=== PATIENT | female | born 1995 | race Caucasian/White ===

== ENCOUNTER 2016-04-18 20:14 | Emergency (ER) | payer SELFPAY ==
[~2016-04-18] VITALS: Ht 160 cm; Wt 118.2 kg
[2016-04-18 20:21] VITALS: TEMP 99.2
[2016-04-18 21:50] VITALS: BP 121/79; PULSE 97
== END 2016-04-18 21:50 | disposition home or self-care (01) ==
LOC: COL.ER 20:14
DX: J06.9 Acute upper respiratory infection, unspecified (principal)

== ENCOUNTER 2017-01-31 18:52 | Emergency (ER) | payer SELFPAY ==
[~2017-01-31] VITALS: Ht 160 cm; Wt 119.1 kg
[2017-01-31 18:54] VITALS: BP 136/68; TEMP 98.7
[2017-01-31] MEDS ORDERED: ULTRAM 50MG TAB50 MG PO (18:58)
[2017-01-31] MEDS ORDERED: FLEXERIL 1010 MG/TAB PO (20:37)
[2017-01-31] MEDS ORDERED: NAPROSYN 2250 MG/TAB PO (20:37)
[2017-01-31 20:53] VITALS: PULSE 79
== END 2017-01-31 20:53 | disposition home or self-care (01) ==
LOC: COL.ER 18:52
DX: S46.011A Strain of muscle(s) and tendon(s) of the rotator cuff of right shoulder, initial encounter (principal); X50.3XXA Overexertion from repetitive movements, initial encounter

== ENCOUNTER 2017-06-19 12:57 | Emergency (ER) | payer SELFPAY ==
[~2017-06-19] VITALS: Ht 160 cm; Wt 118.2 kg
[~2017-06-19 12:57] MED LIST: FLEXERIL 1010 MG/TAB PO; NAPROSYN 2250 MG/TAB PO; ULTRAM 50MG TAB50 MG PO
[2017-06-19 12:59] VITALS: BP 123/82; TEMP 97.3
[2017-06-19] MEDS ORDERED: PREDNISONE20 MG PO (14:00)
[2017-06-19 14:04] VITALS: PULSE 76
== END 2017-06-19 14:05 | disposition home or self-care (01) ==
LOC: COL.ER 12:57
DX: J04.0 Acute laryngitis (principal); J02.9 Acute pharyngitis, unspecified

== ENCOUNTER 2018-03-21 16:54 | Emergency (ER) | payer SELFPAY ==
[~2018-03-21] VITALS: Ht 160 cm; Wt 115.5 kg
[~2018-03-21 16:54] MED LIST changes: +PREDNISONE20 MG PO
[2018-03-21 16:57] VITALS: TEMP 98.6
[2018-03-21] MEDS ORDERED: NAPROSYN500 MG PO (17:36)
[2018-03-21 17:47] LABS: COLLECTION METHOD CLEAN CATCH
[2018-03-21 17:59] LABS: MUCOUS Present /lpf; PH 7 (5-8); URINE APPEARANCE Cloudy; URINE BACTERIA None Seen /hpf; URINE BILIRUBIN Negative (NEGATIVE); URINE BLOOD 1+ (NEGATIVE); URINE COLOR Yellow; URINE GLUCOSE Negative (NEGATIVE); URINE KETONE Negative (NEGATIVE); URINE LEUKOCYTE ESTERASE 1+ (NEGATIVE); URINE NITRATE Negative (NEGATIVE); URINE PROTEIN(semi-quant) Negative (NEGATIVE); URINE UROBILINOGEN Negative (NEGATIVE)
[2018-03-21 18:54] VITALS: BP 118/77; PULSE 77
== END 2018-03-21 19:03 | disposition home or self-care (01) ==
LOC: COL.ER 16:54
PROVIDERS: Emergency Medicine
DX: M54.5 Low back pain (principal)
CPT/HCPCS: J1170; J1885

== ENCOUNTER 2018-03-30 20:20 | Emergency (ER) | payer SELFPAY ==
[~2018-03-30] VITALS: Ht 160 cm; Wt 120.5 kg
[~2018-03-30 20:20] MED LIST changes: +NAPROSYN500 MG PO
[2018-03-30 21:20] VITALS: BP 132/86; TEMP 98
[2018-03-30 22:34] LABS: COLLECTION METHOD CLEAN CATCH
[2018-03-30 22:44] LABS: AMORPHOUS CRYSTAL Present /uL; MUCOUS Present /lpf; PH 7 (5-8); URINE APPEARANCE Hazy; URINE BACTERIA None Seen /hpf; URINE BILIRUBIN Negative (NEGATIVE); URINE BLOOD Negative (NEGATIVE); URINE COLOR Yellow; URINE GLUCOSE 1+ (NEGATIVE); URINE KETONE Negative (NEGATIVE); URINE LEUKOCYTE ESTERASE Negative (NEGATIVE); URINE NITRATE Negative (NEGATIVE); URINE PROTEIN(semi-quant) Negative (NEGATIVE); URINE RBC 0-2 /hpf; URINE UROBILINOGEN Negative (NEGATIVE)
[2018-03-30] MEDS ORDERED: GLUCOPHAGE500 MG/TAB PO (22:48)
[2018-03-30] MEDS ORDERED: PERCOCET 325 MG1 TA2 PO (23:23)
[2018-03-31 00:08] VITALS: PULSE 110
== END 2018-03-31 00:08 | disposition home or self-care (01) ==
LOC: COL.ER 20:20
PROVIDERS: Emergency Medicine
DX: M54.5 Low back pain (principal); Z79.84 Long term (current) use of oral hypoglycemic drugs

== ENCOUNTER 2019-01-09 07:11 | Emergency (ER) | payer SELFPAY ==
[~2019-01-09] VITALS: Ht 160 cm; Wt 125.9 kg
[~2019-01-09 07:11] MED LIST changes: +GLUCOPHAGE500 MG/TAB PO; +PERCOCET 325 MG1 TA2 PO
[2019-01-09 07:18] VITALS: BP 118/63; TEMP 96.3
[2019-01-09] MEDS ORDERED: VALTREX 50500 MG/TAB PO (07:58)
[2019-01-09 08:26] LABS: COLLECTION METHOD CLEAN CATCH
[2019-01-09 08:32] LABS: MUCOUS Present /lpf; PH 5 (5-8); URINE APPEARANCE Hazy; URINE BACTERIA None Seen /hpf; URINE BILIRUBIN Negative (NEGATIVE); URINE BLOOD 3+ (NEGATIVE); URINE COLOR Yellow; URINE GLUCOSE Negative (NEGATIVE); URINE KETONE Negative (NEGATIVE); URINE LEUKOCYTE ESTERASE Negative (NEGATIVE); URINE NITRATE Negative (NEGATIVE); URINE PROTEIN(semi-quant) Negative (NEGATIVE); URINE RBC 0-2 /hpf; URINE UROBILINOGEN Negative (NEGATIVE)
[2019-01-09 09:30] VITALS: PULSE 84
== END 2019-01-09 09:30 | disposition home or self-care (01) ==
LOC: COL.ER 07:11
PROVIDERS: Physician Assistant
DX: R10.2 Pelvic and perineal pain (principal); F32.9 Major depressive disorder, single episode, unspecified; E11.9 Type 2 diabetes mellitus without complications; Z87.891 Personal history of nicotine dependence